=== PATIENT | male | born 1995 | race Hispanic/Latino ===

== ENCOUNTER 2016-07-06 03:52 | Emergency (ER) | payer OTHER ==
[2016-07-06 04:02] VITALS: RESP 16; TEMP 98.1
[2016-07-06] MEDS ORDERED: Oxycodone/Acetaminophen 5/325 mg Tab PO ONE (04:08)
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
[2016-07-06] MEDS ORDERED: Ketamine 50 mg/ml Inj (10 ml) IV ONE (04:38)
[2016-07-06] MEDS ORDERED: Ketamine 50 mg/ml Inj (10 ml) ONE (04:46)
[2016-07-06 05:36] VITALS: BP 132/77
[2016-07-06 06:00] VITALS: PULSE 75
[2016-07-06 06:01] VITALS: O2SAT 96
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
--- NOTE | 2016-07-06 09:29 | RAD ---
PROCEDURE: Right Wrist Radiographs. HISTORY: post reduction COMPARISON: Prior radiograph from same day. FINDINGS: BONES: Status post cast placement over distal radial fracture. Osseous detail obscured by overlying cast. JOINTS: No significant degenerative changes. SOFT TISSUES: Soft tissue swelling OTHER FINDINGS: None. IMPRESSION: Status post cast placement oval distal radial fracture.
--- NOTE | 2016-07-06 09:30 | RAD ---
PROCEDURE: Right Wrist Radiographs. HISTORY: r/o fracture COMPARISON: None. FINDINGS: BONES: Dorsally displaced fracture involving the distal radius. The fracture extends into the radiocarpal joint space. JOINTS: Dislocation of the radiocarpal joint space. SOFT TISSUES: Extensive soft tissue swelling. OTHER FINDINGS: None. IMPRESSION: Dorsally displaced fracture involving the distal radius. Fracture extends into the radiocarpal joint space which appears dislocated.
== END 2016-07-06 07:07 | disposition home or self-care (01) ==
LOC: H.ER 03:52 → UNDOADMOB 05:54 → H.EROBSV 05:54 → UNDODISOB 07:07 → H.ER 07:07
DX: S52.501A Unspecified fracture of the lower end of right radius, initial encounter for closed fracture (principal); W10.9XXA Fall (on) (from) unspecified stairs and steps, initial encounter; Y93.9 Activity, unspecified